=== PATIENT | female | born 1955 | race Caucasian/White ===

== ENCOUNTER 2024-01-27 13:49 | Outpatient (OUT) | payer MEDICARE, MEDICAID, SELFPAY ==
--- NOTE | 2024-01-27 14:00 | CA_ITS ---
Patient Name: CHLOE BENOIT MR#: [id number] : 1955 Exam Date: 01/27/2024 Ordering Doctor: PARKER Apple CNP ECHOCARDIOGRAM REPORT PROCEDURE: CA ECHO DOPPLER COMPLETE INDICATIONS: Uncontrolled hypertension, dyspnea COMPARISON: None. DESCRIPTION: COMPLETE ECHOCARDIOGRAM Real-time transthoracic echocardiography with 2D, M-mode, spectral and color flow Doppler performed. QUALITY: Technical quality was adequate. 65 , 264#, BSA 2.23 m2, BP 166/84 LEFT VENTRICLE: Normal chamber size. Normal left ventricular wall thickness. Normal systolic function. LV EF: Normal left ventricular ejection fraction, (>55%). DIASTOLIC: Normal diastolic function. ATRIAL SEPTUM: Visually appears intact. LEFT ATRIUM: Normal chamber size. RIGHT ATRIUM: Normal chamber size. RIGHT VENTRICLE: Normal chamber size. Normal right ventricular systolic function. TRICUSPID VALVE: Normal mobility and thickness. No stenosis with trivial regurgitation. No evidence of pulmonary hypertension. RVSP 33 mmHg MITRAL VALVE: Normal mobility and thickness. No evidence of mitral valve stenosis. There is no mitral annular calcification. No mitral regurgitation. AORTIC VALVE: Normal trileaflet appearance. No visible sclerosis. Normal leaflet mobility. No evidence of aortic valve stenosis. Multifocal calcifications. No aortic regurgitation. AORTIC ROOT: Normal diameter and appearance. PULMONIC VALVE: Normal thickness and mobility. No stenosis. No regurgitation. PERICARDIUM: No evidence of pericardial effusion. IVC: Collapses with inspirations. PLEURA: CONCLUSION: 1. Normal ventricular size and systolic function. LVEF is estimated at 55 to 60%. 2. Normal diastolic function. 3. No significant valvular dysfunction. 4. Normal right-sided pressures. 5. No pericardial effusion. Adult Echocardiography Procedure Report Left Ventricle LVEDD (3.7 - 5.6 cm): 4.61 cm LVESD (2.2 - 4.0 cm): 3.32 cm LVIVS thickness (0.6 - 1.2 cm): 0.67 cm LVPW thickness (0.5 - 1.0 cm): 0.81 cm e': 0.07 m/s E - e': 11.07 LVOT Max Gradient: 4.03 mm[Hg] LVOT Area (cm2): 1.00 m/s Peak Velocity (LVOT): 1.00 m/s Mean Velocity (LVOT): 0.66 m/s LVOT Diameter 1.99 cm Left Atrium LA Volume Index (2D A2C): 28.59 ml/m2 Left Atrium Systolic Dimension: 4.12 cm Mitral Valve MV E to A Ratio: 0.80 Mitral Valve A-Wave Peak Velocity: 0.93 m/s Mitral Valve E-Wave Peak Velocity: 0.74 m/s Right Ventricle Aorta AO Root Diam: 2.90 cm Aortic Valve AoV Area (Peak Joe): 1.91 cm2, 1.91 cm2 AoV Area (VTI): 2.57 cm2, 2.57 cm2 Peak Velocity(Antegrade Flow): 1.63 m/s Peak Gradient(Antegrade Flow): 10.64 mm[Hg] Mean Velocity(Antegrade Flow): 1.19 m/s Mean Gradient(Antegrade Flow): 6.11 mm[Hg] Velocity Time Integral: 30.24 cm Tricuspid Valve Peak Velocity (Regurgitant Flow): 2.74 m/s, 2.67 m/s Pulmonic Valve Peak Gradient: 3.49 mm[Hg], 3.39 mm[Hg] Right Atrium Right Atrium Systolic Pressure: 47.54 ml, 47.54 ml Dictated by: Giles Bonilla M.D. on 01/27/2024 at 18:03 Approved by: Giles Bonilla M.D. on 01/27/2024 at 18:06
--- NOTE | 2024-01-27 14:45 | XR_ITS ---
The [address] [address] Patient Name: CHLOE BENOIT MRN: [id number] date: 1955 Sex: F Assigned Patient Location: CARD Current Patient Location: CARD Accession/Order Number: [id number] Exam Date: 01/27/2024 14:48 Report Date: 01/27/2024 15:59 At the request of: ROMAAN COVINGTON Procedure: XR chest 2V EXAM: XR chest 2V HISTORY: Dyspnea on exertion R06.09 COMPARISON: 10/22/2019 TECHNIQUE: Upright PA and lateral chest x-ray FINDINGS: The heart is near the upper limits of normal in size without cardiac decompensation. No acute infiltrate, effusion or pneumothorax is identified. The previously noted right PICC line has been removed. The osseous structures are grossly intact. XR/XR chest 2V IMPRESSION: No acute infiltrate or evidence of cardiac decompensation. Except for interval clearing of the right lung base and removal of the right PICC line, the overall appearance of the chest has not changed significantly. Electronically authenticated by: ALEX CLEANING Date: 01/27/2024 15:59
--- NOTE | 2024-01-27 14:46 | XR_ITS ---
The [address] [address] Patient Name: CHLOE BENOIT MRN: [id number] date: 1955 Sex: F Assigned Patient Location: CARD Current Patient Location: Accession/Order Number: [id number] Exam Date: 01/27/2024 15:05 Report Date: 01/28/2024 07:21 At the request of: ROMANA COVINGTON Procedure: XR DEXA axial skeleton EXAMINATION: XR DEXA axial skeleton, 01/27/2024 3:05 PM EDT HISTORY: Z78.0 asymptomatic menopausal state COMPARISON: 2015 TECHNIQUE: Dual-energy X-ray absorptiometry (DEXA) bone density study performed for the axial skeleton. HISTORY: Z78.0 asymptomatic menopausal state FINDINGS: Bone mineral density AP spine L1-L4 measures 1.200 g/sq cm. T score 0.2. Dense opacification: Normal. Lowest bone mineral densities the left femoral neck measuring 0.806 g/sq cm for T score of -1.7. WHO classification: Osteopenia XR/XR DEXA axial skeleton IMPRESSION: Osteopenia. Moderate fracture risk Electronically authenticated by: JONELLE EPSTEIN Date: 01/28/2024 07:21
--- NOTE | 2024-01-27 14:46 | MM_ITS ---
Patient Name: CHLOE BENOIT MR#: [id number] : 1955 Exam Date: 01/27/2024 Ordering Doctor: PARKER Apple CNP RADIOLOGY REPORT PROCEDURE: MM TOMOSYNTHESIS SCREENING BI COMPARISON: MG MAMM SCREEN 3D MADAN CAD, 12/27/2021. MG MAMM RT DIAG FU, 01/02/2022. INDICATIONS: screening Calculator Name NCI Breast Cancer Risk Assessment Tool 5 Year Breast Cancer Risk 4.10% Lifetime Breast Cancer Risk 13.50% Personal Breast Cancer No Personal Ovarian Cancer No Treatments None Family Cancers Mother with breast cancer at age ~60; Father with colon, liver cancer at age 70. LOCATION: [facility] BREAST COMPOSITION: Scattered areas fibroglandular density. FINDINGS: DIAGNOSTIC CATEGORY 2--BENIGN FINDING. NO CHANGE FROM COMPARISON. Scattered benign-appearing nodules are present. Scattered benign-appearing calcifications are present. Scattered benign-appearing lymph nodes are present. RIGHT BREAST: No significant suspicious finding. LEFT BREAST: No significant suspicious finding. RECOMMENDATIONS: ROUTINE MAMMOGRAM AND CLINICAL EVALUATION IN 12 MONTHS. PLEASE NOTE: A NORMAL MAMMOGRAM DOES NOT EXCLUDE THE POSSIBILITY OF BREAST CANCER. A CLINICALLY SUSPICIOUS PALPABLE LUMP SHOULD BE BIOPSIED. Dictated by: Arnie Schwartz MD on 01/27/2024 at 16:01 Approved by: Arnie Schwartz MD on 01/27/2024 at 16:05
== END 2024-01-27 13:50 | disposition home or self-care (01) ==
LOC: CARD 13:51
PROVIDERS: PCP Nurse Practitioner; Visit Provider Nurse Practitioner
DX: Z12.31 Encounter for screening mammogram for malignant neoplasm of breast (principal); Z78.0 Asymptomatic menopausal state; I10 Essential (primary) hypertension; R06.09 Other forms of dyspnea; Z80.3 Family history of malignant neoplasm of breast; Z80.0 Family history of malignant neoplasm of digestive organs; Z80.8 Family history of malignant neoplasm of other organs or systems; M85.80 Other specified disorders of bone density and structure, unspecified site
CPT/HCPCS: 71046; 77063; 77067; 77080; 93306

== ENCOUNTER 2024-05-19 10:16 | Outpatient (OUT) | payer MEDICARE, SELFPAY ==
[2024-05-19 11:02] LABS: Creatinine Urine Random 136.31 mg/dL (20.00-300.00); Microalbum Creatinine Ratio Ur 9.5 mg/g (0.0-29.9); Microalbumin Urine Random <1.3 mg/dL (<=30.0)
[2024-05-19 11:04] LABS: Estimated Average Glucose 117 mg/dL; Glycohemoglobin A1C 5.7 % (4.5-6.2)
[2024-05-19 11:18] LABS: Chol HDL Ratio 2.7; Cholesterol 137 mg/dL (<=200); HDL Cholesterol 50 mg/dL (40-60); LDL Cholesterol Calculated 74.8 mg/dL; Thyroid Stimulating Hormone 1.819 uIU/mL (0.358-3.740); Triglycerides 61 mg/dL (<=150); VLDL CHOLESTEROL 12.2 mg/dL
[2024-05-19 11:36] LABS: Free T4 0.99 ng/dL (0.76-1.46)
== END 2024-05-19 10:17 | disposition home or self-care (01) ==
LOC: LAB 10:18
PROVIDERS: PCP Nurse Practitioner; Visit Provider Nurse Practitioner
DX: K21.9 Gastro-esophageal reflux disease without esophagitis (principal); I10 Essential (primary) hypertension; R73.03 Prediabetes; F41.9 Anxiety disorder, unspecified; F32.A Depression, unspecified
CPT/HCPCS: 36415; 80061; 82043; 82306; 82570; 82607; 83036; 84439; 84443

== ENCOUNTER 2024-05-19 10:20 | Outpatient (OUT) | payer MEDICARE, SELFPAY ==
[2024-05-19 10:51] LABS: Basophils Absolute Auto 0.2 10^3/uL (0.0-0.1); Basophils Percent Auto 1.8 % (0.2-2.0); Eosinophils Absolute Auto 0.2 10^3/uL (0.0-0.7); Eosinophils Percent Auto 2.2 % (0.9-7.0); Hematocrit 39.6 % (36.0-48.0); Hemoglobin 13.3 g/dL (12.0-16.0); Immature Granulocytes Abs Auto 0.06 10^3/uL (0.00-0.03); Immature Granulocytes Pct Auto 0.7 % (0.0-0.5); Lymphocytes Absolute Auto 2.1 10^3/uL (1.2-3.8); Lymphocytes Percent Auto 25.9 % (20.5-60.0); Mean Corpuscular HGB Conc 33.6 g/dL (29.9-35.2); Mean Corpuscular Hemoglobin 32.7 pg (26.7-34.0); Mean Corpuscular Volume 97.3 fL (81.0-99.0); Mean Platelet Volume 13.1 fL (9.5-13.5); Monocytes Absolute Auto 0.5 10^3/uL (0.3-0.8); Monocytes Percent Auto 5.4 % (1.7-12.0); Neutrophils Absolute Auto 5.3 10^3/uL (1.4-6.5); Platelet Count 196 10^3/uL (150-450); Red Blood Count 4.07 10^6/uL (4.20-5.40); Red Cell Distribution Width 14.9 % (11.0-15.0); White Blood Count 8.3 10^3/uL (4.0-11.0)
[2024-05-19 11:05] LABS: Bilirubin Urine NEGATIVE (NEGATIVE); Blood Urine NEGATIVE (NEGATIVE); Clarity Urine CLEAR (CLEAR); Color Urine YELLOW (YELLOW); Glucose Urine UA NEGATIVE (NEGATIVE); Ketones Urine NEGATIVE (NEGATIVE); Leukocyte Esterase Urine NEGATIVE (NEGATIVE); Nitrite Urine NEGATIVE (NEGATIVE); Protein Urine NEGATIVE (NEG/TRACE); Urine Microscopic Indicated NO; Urobilinogen Urine 0.2 EU/dL (0.2-1.0); pH Urine 7.5 (5.0-9.0)
[2024-05-19 11:07] LABS: Partial Thromboplastin Time 30.5 sec (22.3-36.2); Prothrombin Time 10.6 sec (9.0-11.6)
[2024-05-19 11:09] LABS: Alanine Aminotransferase 33 U/L (14-59); Albumin Globulin Ratio 0.9; Albumin Level 3.2 g/dL (3.4-5.0); Alkaline Phosphatase 90 U/L (46-116); Anion Gap 12.1; Aspartate Amino Transferase 15 U/L (15-37); BUN Creatinine Ratio 14.3; Bilirubin Total 0.5 mg/dL (0.2-1.0); Chloride 105 mmol/L (98-107); Estimated GFR (African America >60 (>=60); Estimated GFR (Non-African Ame >60 (>=60); Globulin 3.4 g/dL; Glucose 117 mg/dL (74-106); Potassium 4.1 mmol/L (3.5-5.1); Sodium 141 mmol/L (136-145); Total Protein 6.6 g/dL (6.4-8.2)
== END 2024-05-19 10:21 | disposition home or self-care (01) ==
LOC: LAB 10:23
PROVIDERS: PCP Nurse Practitioner; Visit Provider Personal Emergency Response Attendant
DX: Z01.812 Encounter for preprocedural laboratory examination (principal); K21.9 Gastro-esophageal reflux disease without esophagitis; I10 Essential (primary) hypertension; R73.03 Prediabetes; F41.9 Anxiety disorder, unspecified; F32.A Depression, unspecified
CPT/HCPCS: 36415; 80053; 80061; 81003; 82043; 82306; 82570; 82607; 83036; 84439; 84443; 85025; 85610; 85730; 87086; 87150; 87186

== ENCOUNTER 2025-05-18 10:00 | Outpatient (OUT) | payer MEDICARE, SELFPAY ==
--- OUTSIDE RECORDS SUMMARY | 2023-12-11 11:00 | XMS_ITS ---
Author Organization [facility] Servic es Address [address] [place] [address] Care Team Providers Care Byproducts Maker Name Role Phone Alanna Cuenca Primary Care Provider REASON FOR VISIT ALVEOPLASTY Encounters Encounter Location Date Provider Diagnosis [place] [address] [place] [address] 12/11/2023 Alanna Martinez Plan Of Treatment No Information Progress Notes * CHLOE BENOIT ADOB:[birth year] (70 yo F)Acc No.[id number]:12/11/2023 Patient: Willard GOMEZCHLOE Provider: Jayshree MARTINEZ DDS :1955 A ge:68 Y S ex:Female Date:12/11/2023 Address:[address] [place], [place] [id number] Subjective: * Chief Complaints: * 1 . ALVEOPLASTY. * Medical History: Objective: * Vitals: Assessment: Plan: * Treatment: * Images: * Electronic signature of Johana Martinez DDS on 05/18/2025 at 06:28 AM EDT Sign off status: Pending * Provider: Jayshree MARTINEZ DDS Date: 12/11/2023 Generated for Neena mckenzie/Leeann/eTransmitting on: 0 05/18/2025 06:28 AM EDT
--- OUTSIDE RECORDS SUMMARY | 2024-01-15 09:30 | XMS_ITS ---
Author Organization [facility] Servic es Address [address] [place] [address] Care Team Providers Care Employment Counselor Name Role Phone Alanna Cuenca Primary Care Provider REASON FOR VISIT FILLING Encounters Encounter Location Date Provider Diagnosis [place] [address] [place] [address] 01/15/2024 Alanna Martinez Plan Of Treatment No Information Progress Notes * CHLOE BENOIT ADOB:[birth year] (70 yo F)Acc No.[id number]:01/15/2024 Patient: Willard GOMEZ CHLOE Garcia Provider: Jayshree MARTINEZ DDS :1955 A ge:68 Y S ex:Female Date:01/15/2024 Address:[address] [place], [place] [id number] Subjective: * Chief Complaints: * 1 . FILLING. * Medical History: Objective: * Vitals: Assessment: Plan: * Treatment: * Images: * Electronic signature of Johana Martinez DDS on 05/18/2025 at 06:28 AM EDT Sign off status: Pending * Provider: Jayshree MARTINEZ DDS Date: 01/15/2024 Generated for Neena mckenzie/Leeann/eTransmitting on: 05/18/2025 06:28 AM EDT
--- OUTSIDE RECORDS SUMMARY | 2025-05-18 10:09 | XMS_ITS | Encounter Summary ---
Author Organization [facility] Address [address] [facility] [place] [address] Care Team Providers Care Government Affairs Researcher Name Role Phone Tootie Apple NP Unavailable [phone] Bowen Coawn MD Primary Care Provider [phone] Tootie Apple MUSIC LIBRARY ASSISTANT Unavailable [phone] Encounter Details Date Type Department Care Team (Late st Contact Info) Description 06/03/2024 External Result Encounter [facility] [address] [place] [address] Iggy Wilson, MANAN [address] [place] [address] Social History Tobacco Use Types Packs/Day Years Used Date Smoking Tobacco: Former Cigarettes Q uit: 2020 Passive Smoke Exposure: Past Smokeless Tobacco: Never Alcohol Use Standard Drinks/Week Comments Never 0 (1 standard drink = 0.6 oz pur e alcohol) Humiliation, Afraid, Rape, and Kick questionnair e Answer Date Recorded Within the last year, have y ou been afraid of your partner or ex-partner? No 01/14/2024 Within the last year, have y ou been humiliated or emotionally abused in other ways by your partner or ex-partner? No Within the last year, have y ou been kicked, hit, slapped, or otherwise physically hurt by your partner or ex-partner? No 01/14/2024 Within the last year, have y ou been raped or forced to have any kind of sexual activity by your partner or ex-partner? No 01/14/2024 Social Connection and Isolat ion Panel [NHANES] Answer Date Recorded In a typical week, how many times do you talk on the phone with family, friends, or neighbors? More than three times a week 01/14/2024 How often do you get togethe r with friends or relatives? More than three times a week 01/14/2024 How often do you attend chur ch or spiritism services? More than 4 times per year 01/14/2024 Do you belong to any clubs o r organizations such as christianity groups, unions, fraternal or athletic groups, or school groups? No 01/14/2024 How often do you attend meet ings of the clubs or organizations you belong to? Never 01/14/2024 Are you , , di vorced, , never , or living with a partner? 01/14/2024 AUDIT-C Answer Date Recorded Q1: How often do you have a drink containing alcohol? Never 01/14/2024 Q2: How many drinks containi ng alcohol do you have on a typical day when you are drinking? Patient does not drink Q3: How often do you have si x or more drinks on one occasion? Never 01/14/2024 Overall Financial Resource Strain (CARDIA) Answe r Date Recorded How hard is it for you to pa y for the very basics like food, housing, medical care, and heating? Somewhat hard 01/14/2024 PHQ-2 Answer Date Recorded Patient Health Questionnaire-2 Score 1 01/14/2024 [facility] - Occupational Stress Questionnaire Answer Date Recorded Do you feel stress - tense, restless, nervous, or anxious, or unable to sleep at night because your mind is troubled all the time - these days? Only a little 01/14/2024 Exercise Vital Sign Answer Date Recorde d On average, how many days pe r week do you engage in moderate to strenuous exercise (like a brisk walk)? 0 days 01/14/2024 On average, how many minutes do you engage in exercise at this level? 0 min 01/14/2024 Hunger Vital Sign Answer Date Recorded Within the past 12 months, y ou worried that your food would run out before you got the money to buy more. Never true 01/14/20 24 Within the past 12 months, t he food you bought just didn't last and you didn't have money to get more. Never true 01/14/2024 PRAPARE - Transportation Answer Date Re corded In the past 12 months, has l ack of transportation kept you from medical appointments or from getting medications? No 12/2023 In the past 12 months, has l ack of transportation kept you from meetings, work, or from getting things needed for daily living? No 01/14/2024 Housing Stability Vital Sign Answer [place] e Recorded In the last 12 months, was t here a time when you were not able to pay the mortgage or rent on time? No 01/14/2024 In the last 12 months, how many places have you lived? 1 01/14/2024 In the last 12 months, was t here a time when you did not have a steady place to sleep or slept in a prison (including now)? No 01/14/2024 Comments Unknown Sex and Gender Information Value Date Recorded Sex Assigned at Not on file Legal Sex Female 6:41 PM EDT Gender Identity Female 04/06/2023 7:49 PM EDT Sexual Orientation Not on file documented as of this encounter Plan of Treatment Upcoming Encounters Date Type Department Care Team (Late st Contact Info) Description 05/18/2025 10:30 AM EDT Office Visit [facility] [address] [place] [address] Tootie Apple NP [address] [place] [address] documented as of this encounter Procedures Procedure Name Priority Date/Time Associated Diagnosis Comments XR LOWER EXTREMITY LEG LENGTH EVALUATION 06/03/2024 2:40 PM EDT XR CHEST 2 VIEWS 06/03/2024 2:34 PM EDT documented in this encounter Results * XR lower extremity leg length evaluation (06/03/2024 2:40 PM EDT) Anatomical Region Laterality Modality Lower Extremities Radiographic I maging 06/03/2024 2:40 PM EDT Narrative 06/03/2024 2:39 PM EDT THIS EXAM WAS PERFORMED AT [facility] History: Joint pain. Templating for leg alignment purposes Study: A frontal view of the lower extremities One view study. Comparison: None Findings: Of the right knee medial compartment is appreciated. Sclerosis along the tibial plateau is noted. Impression: Right lower extremity measures 84.8 cm. Finalized by Krissy Suarez MD on 06/03/2024 2:39 PM Procedure Note Radiology, RadiologistMD - 06/03/2024 THIS EXAM WAS PERFORMED AT [facility] History: Joint pain. Templating for leg alignment purposes Study: A frontal view of the lower extremities One view study. Comparison: None Findings: Of the right knee medial compartment is appreciated. Sclerosis along thetibial plateau is noted. Impression: Right lower extremity measures 84.8 cm. Finalized by Krissy Suarez MD on 06/03/2024 2:39 PM us Iggy HINKLE IMG XR PROCEDURES Final Resul t * XR chest 2 views (06/03/2024 2:34 PM EDT) Anatomical Region Laterality Modality Chest Radiographic Kerry ging 06/03/2024 2:34 PM EDT Narrative 06/03/2024 2:33 PM EDT THIS EXAM WAS PERFORMED AT [facility] History: Preoperative examination Procedure: 2 view PA and Lateral chest radiograph. Comparison: none Findings: Minimal bandlike atelectasis at the left lung base. Cardiac silhouette and pulmonary vessels within normal limits. No pneumothorax. No pleural effusions. Impression: Minimal left base atelectasis. Finalized by Rajan Marie MD on 06/03/2024 2:33 PM Procedure Note Radiology, RadiologistMD - 06/03/2024 THIS EXAM WAS PERFORMED AT [facility] History: Preoperative examination Procedure: 2 view PA and Lateral chest radiograph. Comparison: none Findings: Minimal bandlike atelectasis at the left lung base. Cardiacsilhouette and pulmonary vessels within normal limits. No pneumothorax.No pleural effusions. Impression: Minimal left base atelectasis. Finalized by Rajan Marie MD on 06/03/2024 2:33 PM us Iggy HINKLE IMG XR PROCEDURES Final Resul t documented in this encounter Visit Diagnoses Not on filedocumented in this encounter Additional Health Concerns Assessment Noted Time PHQ-9 Depression Total Score: 2 01/14/20 24 10:40 AM EDT documented as of this encounter Care Teams Government Affairs Researcher Relationship Specialty Start Date End Date Bowen Cowan MD [address] [place] [address] PCP - General Family Medicine 12/04/23 Tootie Apple NP [address] [place] [address] PCP - ACO Reach 11/19/24 Tootie Apple NP Referring Physician Nurse Practitioner 04/07/23 documented as of this encounter
--- OUTSIDE RECORDS SUMMARY | 2025-05-18 10:09 | XMS_ITS | Encounter Summary ---
Author Organization [facility] Address [address] [place] [address] Care Team Providers Care Petrologist Name Role Phone Bowen Cowan MD Primary Care Provider [phone] Tootie Apple NP Unavailable [phone] Bowen Cowan MD Primary Care Provider [phone] Tootie Apple NP Unavailable [phone] Encounter Details Date Type Department Care Team (Late st Contact Info) Description 04/04/2023 [facility] [address] [place] [address] Iggy Wilson, PA [address] [facility] [place] [address] Social History Tobacco Use Types Packs/Day Years Used Date Smoking Tobacco: Unknown Tobacco Cessation:Counseling Given: Not Answered Comments Unknown Sex and Gender Information Value Date Recorded Sex Assigned at Not on file Legal Sex Female 6:41 PM EDT Gender Identity Female 04/06/2023 7:49 PM EDT Sexual Orientation Not on file documented as of this encounter Plan of Treatment Upcoming Encounters Date Type Department Care Team (Late st Contact Info) Description 05/18/2025 10:30 AM EDT Office Visit [facility] [address] [place] [phone] Tootie Apple AUTOMOTIVE PARTS PERSON [address] [place] [phone] documented as of this encounter Visit Diagnoses Not on filedocumented in this encounter Care Teams Petrologist Relationship Specialty Start Date End Date Bowen Cowan MD PCP - General Family Medicine 04/07/23 12/03/23 Bowen Cowan MD [address] [place] [address] PCP - General Family Medicine 12/04/23 Tootie Apple NP [address] [place] [address] PCP - ACO Reach 11/19/24 Tootie Apple NP Referring Physician Nurse Practitioner 04/07/23 documented as of this encounter
--- OUTSIDE RECORDS SUMMARY | 2025-05-18 10:09 | XMS_ITS | Encounter Summary ---
Author Organization [facility] Address [address] [place] [address] Care Team Providers Care Pad Assembler Name Role Phone Tootie Apple NP Unavailable [phone] Bowen Cowan MD Primary Care Provider [phone] Tooite Apple NP Unavailable [phone] Encounter Details Date Type Department Care Team (Late st Contact Info) Description 01/27/2024 Clinisync Result Encounter [facility] External Department Unsolicited Tootie Apple NP [address] [place] [address] Social History Tobacco Use Types Packs/Day Years [...] often do you attend chur ch or mandaeism services? More than 4 times per year 01/14/2024 Do you belong to any clubs o r organizations such as druze groups, unions, fraternal or athletic groups, or [...] Recorded Patient Health Questionnaire-2 Score 1 01/14/2024 [facility] - [facility]ational Stress Questionnaire Answer Date Recorded [...] place to sleep or slept in a usp (including now)? No 01/14/2024 Comments Unknown Sex [...] 10:30 AM EDT Office Visit [facility] [address] [place] [address] Tootie Apple NP [address] [place] [address] documented as of this encounter Procedures Procedure Name Priority Date/Time Associated Diagnosis Comments XR CHEST 2V 01/27/2024 3:59 PM EDT documented in this encounter Results * XR CHEST 2V (01/27/2024 3:59 PM EDT) Anatomical Region Laterality Modality Other 01/27/2024 3:59 PM EDT Narrative 01/27/2024 4:02 PM EDT The [address] [address] XRay Report Signed Patient: ARLENE BENOIT#: [id number] : 1955 Acct:[id number] Age/Sex: 68 / F ADM Date: 01/27/24 Loc: CARD Attending Dr: Tootie Apple NP Ordering Physician: Tootie Apple NP Date of Service: 01/27/24 Procedure(s): XR chest 2V Accession Number(s): [id number] cc: Tootie Apple NP The [place] [id number] Patient Name: ARLENE BENOIT MRN: [id number] date: 1955 Sex: F Assigned Patient Location: CARD Current Patient Location: CARD Accession/Order Number: [id number] Exam Date: 01/27/2024 14:48 Report Date: 01/27/2024 15:59 At the request of: TOOTIE APPLE Procedure: XR chest 2V EXAM: XR chest 2V HISTORY: Dyspnea on exertion R06.09 COMPARISON: 10/22/2019 TECHNIQUE: Upright PA and lateral chest x-ray FINDINGS: The heart is near the upper limits of normal in size without cardiac decompensation. No acute infiltrate, effusion or pneumothorax is identified. The previously noted right PICC line has been removed. The osseous structures are grossly intact. XR/XR chest 2V IMPRESSION: No acute infiltrate or evidence of cardiac decompensation. Except for interval clearing of the right lung base and removal of the right PICC line, the overall appearance of the chest has not changed significantly. Electronically authenticated by: ALEX NJ Date: 01/27/2024 15:59 Dictated By: Alex Nj M.D. Signed By: 01/27/24 1602 DD/ 1559 TD/TT: Rehab Aide: Procedure Note Radiology, Radiologist, - 01/27/2024 [place] [address] XRay Report Signed Patient: ARLENE BENOIT AMR#: [id number] : 1955cct:[id number] Age/Sex: 68 / FADM Date: 01/27/24 Loc: CARD Attending Dr: Tootie Apple RETAIL BANKING MANAGER Ordering Physician: Tootie Apple NP Date of Service: 01/27/24 Procedure(s): XR chest 2V Accession Number(s): [id number] cc: Tootie Apple NP [address] [address] Patient Name: ARLENE BENOIT MRN: [id number] date: 1955 Sex: F Assigned Patient Location: CARD Current Patient Location: CARD Accession/Order Number: [id number] Exam Date: 01/27/2024 14:48 Report Date: 01/27/2024 15:59 At the request of: TOOTIE APPLE Procedure: XR chest 2V EXAM: XR chest 2V HISTORY: Dyspnea on exertion R06.09 COMPARISON: 10/22/2019 TECHNIQUE: Upright PA and lateral chest x-ray FINDINGS: The heart is near the upper limits of normal in size withoutcardiac decompensation. No acute infiltrate, effusion or pneumothorax isidentified. The previously noted right PICC line has been removed. The osseousstructures are grossly intact. XR/XR chest 2V IMPRESSION: No acute infiltrate or evidence of cardiac decompensation. Except forinterval clearing of the right lung base and removal of the right PICC line, the overall appearance of the chest has not changed significantly. Electronically authenticated by: ALEX NJ Date: 01/27/2024 15:59 Dictated By: Alex Nj M.D. Signed By:01/27/24 1602 DD/ 1559 TD/TT: Rehab Aide: us Tootie Apple RETAIL BANKING MANAGER [facility] Final Result documented in this encounter Visit Diagnoses Not on filedocumented in this encounter Additional Health Concerns Assessment Noted Time PHQ-9 Depression Total Score: 2 01/14/20 24 10:40 AM EDT documented as of this encounter Care Teams Pad Assembler Relationship Specialty Start Date End Date Bowen Cowan MD [address] [place] [address] PCP - General Family Medicine 12/04/23 Tootie Apple NP [address] [place] [address] PCP - ACO Reach 11/19/24 Tootie Apple NP Referring Physician Nurse Practitioner 04/07/23 documented as of this encounter
--- OUTSIDE RECORDS SUMMARY | 2025-05-18 10:09 | XMS_ITS | Clinical Summary ---
Author Organization [employer] Address [id number] [address] [place] [address] Care Team Providers Care Rim Fire Priming Operator Name Role Phone ErmaaartiTootie mobley SERVICE UNIT OPERATOR OIL WELL-STOCK CLERK Primary Care Provider Allergies Active Allergy Reactions Criticality Noted Date Comments Doxycycline Hives,Swelling 11/03/2019 Medications escitalopram (LEXAPRO) 10 mg tablet Take 1 tablet (10 mg total) by mouth in the morning. 0 Active metoprolol tartrate (LOPRESSOR) 25 mg tablet Take 1 tablet (25 mg total) by mouth in the morning and 1 tablet (25 mg total) before bedtime. 0 Active pantoprazole (PROTONIX) 40 mg EC tablet Take 1 tablet (40 mg total) by mouth in the morning. 0 Active ibuprofen (ADVIL,MOTRIN) 200 mg tablet Take 1 tablet (200 mg total) by mouth. Active docusate sodium (COLACE) 100 mg capsule Take 1 capsule (100 mg total) by mouth every other day. Active sodium chloride syringe, with swab cap Irrigate with 10 mL as directed every 12 (twelve) hours. 140 mL 2 0 Active Additional Information Patient not taking.Reported on 01/13/2020 sulfamethoxazol e-trimethoprim (BACTRIM DS) 800-160 mg per tablet Take 1 tablet by mouth 2 (two) times a day. 20 tablet 0 Active fexofenadine-ps eudoephedrine (FABY-D 24) 180-240 mg per 24 hr tablet Take 1 tablet by mouth daily. Active methylPREDNISol one (MEDROL, VIRGILIO,) 4 mg tablet TAKE 6 TABLETS ON DAY 1 DIRECTED ON PACKAGE AND DECREASE BY 1 TABLET EACH DAY FOR A TOTAL OF 6 DAYS 2 Active SUTAB 1.479-0.188- 0.225 gram tabletIndicatio ns:Encounter for screening colonoscopy Please see instructional sheet given to patient from doctors office. 24 tablet 3 Active Active Problems Problem Noted Date Diagnosed Date Intra-abdominal abscess 11/11/2019 Immunizations No known immunizations Family History Medical History Relation Name Comments Colon cancer Father angel Diabetes Father angel Heart disease Father angel Breast cancer Mother rell Hypertension Mother rell Leukemia Mother rell Uterine cancer Sister Relation Name Status Comments Father angel Mother rell Sister Alive Social History Tobacco Use Types Packs/Day Years Used Date Smoking Tobacco: Never Smokeless Tobacco: Never Tobacco Cessation:Counseling Given: Not Answered Alcohol Use Standard Drinks/Week Comments Not Currently 0 (1 standard drink = 0.6 oz pur e alcohol) AUDIT-C Answer Date Recorded Frequency of Alcohol Consumption Never 11/03/2019 Average Number of Drinks Not on file 020 Frequency of Binge Drinking Not on file 10/14 Childcare Answer Date Recorded Childcare Unknown 03/24/2019 Employment Answer Date Recorded Employment Unknown 03/24/2019 Hunger Screening Answer Date Recorded Within the past 12 months we worried whether our food would run out before we got money to buy more. Never True 10/17/2022 Within the past 12 months th e food we bought just didn't last and we didn't have money to get more. Never True 10/17/2022 Purpose - Life Answer Date Recorded Purpose and direction in life Unknown Comments No Sex and Gender Information Value Date Recorded Sex Assigned at Not on file Legal Sex Female 11:42 AM EDT Gender Identity Not on file Sexual Orientation Not on file Last Filed Vital Signs Vital Sign Reading Time Taken Comments Blood Pressure 117/78 01/13/2020 10:08 AM EDT Pulse 100 01/13/2020 10:08 AM EDT Temperature 36.8 C (98.2 F) 11/14/2019 7:59 AM EST Respiratory Rate 17 12/27/2019 2:05 PM EDT Oxygen Saturation 100% 11/14/2019 7:59 AM EST Inhaled Oxygen Concentration - - Weight 105.7 kg (233 lb) 01/13/2020 10:08 AM EDT Height 165.1 cm (5' 5 ) 01/13/2020 10:08 AM EDT Body Mass Index 38.77 01/13/2020 10:08 AM EDT Plan of Treatment Health Maintenance Due Date Last Done Comments Depression Screening 1968 Tobacco Screening 1968 Adult BMI Screening 02/11/1974 Zoster (Shingles) Vaccine (2 of 3) 08/08/20172016 Fall Risk Screening 02/11/2021 COVID-19 Vaccine (2023-2 5 season) 2024 09/14/2021, 01/19/2021, 12/19/2020 DTaP,Tdap and Td Vaccines (2 - Td or Tdap) 06/11/2025 06/11/2015 Influenza Vaccine 06/13/2025 06/13/2017 Medical Devices Not on file Insurance MEDICARE Advance Directives * Full Code (Latest Code Status on File) Date Activated Date Inactivated Comments 11/11/2019 9:08 PM 11/14/2019 3:01 PM Care Teams Rim Fire Priming Operator Relationship Specialty Start Date End Date Tootie Apple, SERVICE UNIT OPERATOR OIL WELL-STOCK CLERK PCP - General Nurse Practitioner 10/25/19
--- OUTSIDE RECORDS SUMMARY | 2025-05-18 10:09 | XMS_ITS | Encounter Summary ---
Author Organization [facility] [employer] Address [id number] [address] [place] [address] Care Team Providers Care Centrifugal Spinner Name Role Phone ErmaaartiTootie mobley WAREHOUSE REPRESENTATIVE-SCIENCE SPECIALIST Primary Care Provider Encounter Details Date Type Department Care Team (Late st Contact Info) Description 11/18/2022 Telephone [facility] [address] [place] [address] Nickie Mattson RMA Social History Tobacco Use Types Packs/Day Years Used Date Smoking Tobacco: Never Smokeless Tobacco: Never Alcohol Use Standard Drinks/Week Comments Not Currently [...] on file Sexual Orientation Not on file documented as of this encounter Miscellaneous Notes * Telephone Encounter - STEPHANIE Castro - 11/18/2022 11:06 AM EST I called Arlene and left a message to call the office to reschedule her colonoscopy - originally scheduled for 11/21/22. She would like it now at the [facility] so she will need an office appt. with Dr. Pederson then I will schedule her surgery and have her sign all paperwork. documented in this encounter Plan of Treatment Not on file documented as of this encounter Visit Diagnoses Not on filedocumented in this encounter Care Teams Centrifugal Spinner Relationship Specialty Start Date End Date Tootie Apple APRN-SCIENCE SPECIALIST PCP - General Nurse Practitioner 10/25/19 documented as of this encounter
--- OUTSIDE RECORDS SUMMARY | 2025-05-18 10:09 | XMS_ITS | Encounter Summary ---
Author Organization [facility] Address [address] [place] [address] Care Team Providers Care Cooperer Name Role Phone Tootie Apple NP Unavailable [phone] Bowen Cowan MD Primary Care Provider [phone] Tootie Apple NP Unavailable [phone] Encounter Details Date Type Department Care Team (Late st Contact Info) Description 01/27/2024 Clinisync Result Encounter [facility] External Department Unsolicited Tootie Apple NP [address] [place] [address] Social History Tobacco Use Types Packs/Day Years [...] often do you attend chur ch or yazidi services? More than 4 times per year 01/14/2024 Do you belong to any clubs o r organizations such as yazidi groups, unions, fraternal or athletic groups, or [...] Recorded Patient Health Questionnaire-2 Score 1 01/14/2024 [facility] - [facility] Stress [...] place to sleep or slept in a penitentiary (including now)? No 01/14/2024 Comments Unknown Sex [...] Office Visit [facility] [address] [place] [address] Tootie Apple NP [address] [place] [address] documented as of this encounter Procedures Procedure Name Priority Date/Time Associated Diagnosis Comments MM TOMOSYNTHESIS SCREENING BI 01/27/2024 4:06 PM EDT documented in this encounter Results * MM TOMOSYNTHESIS SCREENING BI (01/27/2024 4:06 PM EDT) Anatomical Region Laterality Modality Other 01/27/2024 4:06 PM EDT Narrative 01/27/2024 4:07 PM EDT The [address] [address] Mammography Report Signed Patient: ARLENE BENOIT MR#: [id number] : 1955 Acct:[id number] Age/Sex: 68 / F ADM Date: 01/27/24 Loc: CARD Attending Dr: Tootie Apple NP Ordering Physician: Tootie Apple NP Results: Date of Service: 01/27/24 Follow Up: Procedure(s): MM tomosynthesis screening BI Accession Number(s): [id number] cc: Tootie Apple NP Patient Name: ARLENE BENOIT MR#: [id number] : 1955 Exam Date: 01/27/2024 Ordering Doctor: PARKER Apple CNP RADIOLOGY REPORT PROCEDURE: MM TOMOSYNTHESIS SCREENING BI COMPARISON: MG MAMM SCREEN 3D MADAN CAD, 12/27/2021. MG MAMM RT DIAG FU, 01/02/2022. INDICATIONS: screening Calculator Name NCI Breast Cancer Risk Assessment Tool 5 Year Breast Cancer Risk 4.10% Lifetime Breast Cancer Risk 13.50% Personal Breast Cancer No Personal Ovarian Cancer No Treatments None Family Cancers Mother with breast cancer at age 60; Father with colon, liver cancer at age 70. LOCATION: The [facility] BREAST COMPOSITION: Scattered areas fibroglandular density. FINDINGS: DIAGNOSTIC CATEGORY 2--BENIGN FINDING. NO CHANGE FROM COMPARISON. Scattered benign-appearing nodules are present. Scattered benign-appearing calcifications are present. Scattered benign-appearing lymph nodes are present. RIGHT BREAST: No significant suspicious finding. LEFT BREAST: No significant suspicious finding. RECOMMENDATIONS: ROUTINE MAMMOGRAM AND CLINICAL EVALUATION IN 12 MONTHS. PLEASE NOTE: A NORMAL MAMMOGRAM DOES NOT EXCLUDE THE POSSIBILITY OF BREAST CANCER. A CLINICALLY SUSPICIOUS PALPABLE LUMP SHOULD BE BIOPSIED. Dictated by: Arnie Schwartz MD on 01/27/2024 at 16:01 Approved by: Arnie Schwartz MD on 01/27/2024 at 16:05 Dictated By: Arnie Schwartz M.D. Signed By: 01/27/24 1607 DD/ 1606 TD/TT: Christian Education Director: Procedure Note Radiology, Radiologist, - 01/27/[address] [address] Mammography Report Signed Patient: ARLENE BENOIT AMR#: [id number] : 6Acct:[id number] Age/Sex: 68 / FADM Date: 01/27/24 Loc: CARD Attending Dr: Tootie Apple NP Ordering Physician: Tootie Apple NPResults: Date of Service: 01/27/24Follow Up: Procedure(s): MM tomosynthesis screening BI Accession Number(s): [id number] cc: Tootie Apple NP Patient Name: ARLENE BENOIT MR#: [id number] : 1955 Exam Date: 01/27/2024 Ordering Doctor: PARKER Apple CNP RADIOLOGY REPORT PROCEDURE: MM TOMOSYNTHESIS SCREENING BI COMPARISON: MG MAMM SCREEN 3D MADAN CAD, 12/27/2021. MG MAMM RT DIAG FU, 01/02/2022. INDICATIONS: screening Calculator Name NCI Breast Cancer Risk Assessment Tool 5 Year Breast Cancer Risk 4.10% Lifetime Breast Cancer Risk 13.50% Personal Breast Cancer No Personal Ovarian Cancer No Treatments None Family Cancers Mother with breast cancer at age 60; Father withcolon, liver cancer at age 70. LOCATION: The [facility] BREAST COMPOSITION: Scattered areas fibroglandular density. FINDINGS: DIAGNOSTIC CATEGORY 2--BENIGN FINDING. NO CHANGE FROM COMPARISON. Scattered benign-appearing nodules are present. Scatteredbenign-appearing calcifications are present. Scattered benign-appearing lymph nodes are present. RIGHT BREAST: No significant suspicious finding. LEFT BREAST: No significant suspicious finding. RECOMMENDATIONS: ROUTINE MAMMOGRAM AND CLINICAL EVALUATION IN 12 MONTHS. PLEASE NOTE: A NORMAL MAMMOGRAM DOES NOT EXCLUDE THE POSSIBILITY OFBREAST CANCER. A CLINICALLY SUSPICIOUS PALPABLE LUMP SHOULD BE BIOPSIED. Dictated by: Arnie Schwartz MD on 01/27/2024 at 16:01 Approved by: Arnie Schwartz MD on 01/27/2024 at 16:05 Dictated By: Arnie Schwartz M.D. Signed By:01/27/24 1607 DD/ 1606 TD/TT: Christian Education Director: Tootie Apple NP [facility] Final Result documented in this encounter Visit Diagnoses Not on filedocumented in this encounter Additional Health Concerns Assessment Noted Time PHQ-9 Depression Total Score: 2 01/14/20 24 10:40 AM EDT documented as of this encounter Care Teams Cooperer Relationship Specialty Start Date End Date Bowen Cowan MD [address] [place] [address] PCP - General Family Medicine 12/04/23 Tootie Apple NP [address] [place] [address] PCP - ACO Reach 11/19/24 Tootie Apple NP Referring Physician Nurse Practitioner 04/07/23 documented as of this encounter
--- OUTSIDE RECORDS SUMMARY | 2025-05-18 10:09 | XMS_ITS | Patient Health Record ---
Author Organization [employer] Address [address] [place] [address] Care Team Providers Care Dolly Driver Name Role Phone Alanna Cuenca Primary Care Provider Reason For Referral No Information Medications Medication SIG (Take, Route, Frequency, Duration) Notes Start Date End Date Status Acetaminophen Extra Strength 500 MG 1 tablet as needed Orally every 6 hrs 09/17/2023 Active Ibuprofen 800 MG 1 tablet with food o r milk as needed Orally Three times a day 03/29/2022 Unknown Ibuprofen 800 MG 1 tablet with food o r milk as needed Orally Three times a day 03/27/2022 Unknown Plan Of Treatment No Information Insurance Providers Payer Name Payer Address Payer Phone Subscriber Number Group Number Insured Name Patient Relationship to Insured Coverage Start Date Coverage End Date [place] [address] [place] [address] [id number] CHLOE BENOIT Self - patient is the insured 1 DENTAL [place] [address] [place] [address] [phone] [id number] CHLOE BENOIT Self - patient is the insured 2
--- OUTSIDE RECORDS SUMMARY | 2025-05-18 10:09 | XMS_ITS | Encounter Summary ---
Author Organization [facility] Address [address] [place] [address] Care Team Providers Care Meat Blender Name Role Phone Tootie Apple NP Unavailable [phone] Bowen Cowan MD Primary Care Provider [phone] Tootie Apple NP Unavailable [phone] Encounter Details Date Type Department Care Team (Late st Contact Info) Description 01/28/2024 Clinisync Result Encounter [facility] External Department Unsolicited Tootie Apple NP [address] [place] [address] Social History Tobacco Use Types Packs/Day Years [...] often do you attend chur ch or baptism services? More than 4 times per year 01/14/2024 Do you belong to any clubs o r organizations such as adventist groups, unions, fraternal or athletic groups, or [...] Recorded Patient Health Questionnaire-2 Score 1 01/[facility]2024 [facility] Questionnaire Answer Date Recorded [...] place to sleep or slept in a correction (including now)? No 01/14/2024 Comments Unknown Sex [...] Office Visit [facility] [address] [place] [address] Tootie Apple NP [address] [place] [address] documented as of this encounter Procedures Procedure Name Priority Date/Time Associated Diagnosis Comments XR DEXA AXIAL SKELETON 01/28/2024 7:21 AM EDT documented in this encounter Results * XR DEXA AXIAL SKELETON (01/28/2024 7:21 AM EDT) Anatomical Region Laterality Modality Other 01/28/2024 7:21 AM EDT Narrative 01/28/2024 7:24 AM EDT The [address] [address] XRay Report Signed Patient: ARLENE BENOIT MR#: [id number] : 1955 Acct:[id number] Age/Sex: 68 / F ADM Date: 01/27/24 Loc: CARD Attending Dr: Tootie Apple NP Ordering Physician: Tootie Apple NP Date of Service: 01/27/24 Procedure(s): XR DEXA axial skeleton Accession Number(s): [id number] cc: Tootie Apple NP The [place] [address] Patient Name: ARLENE BENOIT MRN: [id number] date: 1955 Sex: F Assigned Patient Location: CARD Current Patient Location: Accession/Order Number: [id number] Exam Date: 01/27/2024 15:05 Report Date: 01/28/2024 07:21 At the request of: TOOTIE APPLE Procedure: XR DEXA axial skeleton EXAMINATION: XR DEXA axial skeleton, 01/27/2024 3:05 PM EDT HISTORY: Z78.0 asymptomatic menopausal state COMPARISON: 2015 TECHNIQUE: Dual-energy X-ray absorptiometry (DEXA) bone density study performed for the axial skeleton. HISTORY: Z78.0 asymptomatic menopausal state FINDINGS: Bone mineral density AP spine L1-L4 measures 1.200 g/sq cm. T score 0.2. Dense opacification: Normal. Lowest bone mineral densities the left femoral neck measuring 0.806 g/sq cm for T score of -1.7. WHO classification: Osteopenia XR/XR DEXA axial skeleton IMPRESSION: Osteopenia. Moderate fracture risk Electronically authenticated by: JONELLE EPSTEIN Date: 01/28/2024 07:21 Dictated By: Jonelle Epstein M.D. Signed By: 01/28/24723 DD/ 0 TD/TT: Director [employer]: Procedure Note Radiology, Radiologist, - 01/28/2024 The [place] [id number] XRay Report Signed Patient: ARLENE BENOIT AMR#: [id number] : 1955cct:[id number] Age/Sex: 68 / FADM Date: 01/27/24 Loc: CARD Attending Dr: Tootie Apple NP Ordering Physician: Tootie Apple NP Date of Service: 01/27/24 Procedure(s): XR DEXA axial skeleton Accession Number(s): [id number] cc: Tootie Apple NP [place] [address] Patient Name: ARLENE BENOIT MRN: [id number] date: 1955 Sex: F Assigned Patient Location: CARD Current Patient Location: Accession/Order Number: [id number] Exam Date: 01/27/2024 15:05 Report Date: 01/28/2024 07:21 At the request of: TOOTIE APPLE Procedure: XR DEXA axial skeleton EXAMINATION: XR DEXA axial skeleton, 01/27/2024 3:05 PM EDT HISTORY: Z78.0 asymptomatic menopausal state COMPARISON: 2016 TECHNIQUE: Dual-energy X-ray absorptiometry (DEXA) bone density study performed for the axial skeleton. HISTORY: Z78.0 asymptomatic menopausal state FINDINGS: Bone mineral density AP spine L1-L4 measures 1.200 g/sq cm. T score 0.2. Dense opacification: Normal. Lowest bone mineral densities the left femoral neck measuring 0.806 g/sqcm for T score of -1.7. WHO classification: Osteopenia XR/XR DEXA axial skeleton IMPRESSION: Osteopenia. Moderate fracture risk Electronically authenticated by: JONELLE EPSTEIN Date: 01/28/2024 07:21 Dictated By: Jonelle Epstein M.D. Signed By:01/28/24723 DD/ 0 TD/TT: Director [employer]: us Tootie Apple NP [facility] Final Result documented in this encounter Visit Diagnoses Not on filedocumented in this encounter Additional Health Concerns Assessment Noted Time PHQ-9 Depression Total Score: 2 01/14/20 24 10:40 AM EDT documented as of this encounter Care Teams Meat Blender Relationship Specialty Start Date End Date Bowen Cowan MD [address] [place] [address] PCP - General Family Medicine 12/04/23 Tootie Apple NP [address] [place] [address] PCP - ACO Reach 11/19/24 Tootie Apple NP Referring Physician Nurse Practitioner 04/07/23 documented as of this encounter
--- OUTSIDE RECORDS SUMMARY | 2025-05-18 10:10 | XMS_ITS | Clinical Summary ---
Author Organization [facility] Address [address] [place] [address] Phone Care Team Providers Care Egg Sorter Name Role Phone Unavailable Primary Care Provider Unavailabl e Social History Tobacco Use Types Packs/Day Years Used Date Smoking Tobacco: Never Assessed Comments Unknown Sex and Gender Information Value Date Recorded Sex Assigned at Not on file Legal Sex Female 3:22 PM EST Gender Identity Not on file Sexual Orientation Not on file Plan of Treatment Not on file
--- OUTSIDE RECORDS SUMMARY | 2025-05-18 10:10 | XMS_ITS | Clinical Summary ---
Author Organization [facility] Healthcare Address [address] [place] [address] Care Team Providers Care Director Global Intelligence Name Role Phone Tootie Apple NP Unavailable [phone] Bowen Cowan MD Primary Care Provider [phone] Tootie Apple LEAD SOFTWARE DEVELOPER Unavailable [phone] Allergies Active Allergy Reactions Criticality Noted Date Comments Doxycycline Hives,Swelling 11/03/2019 Minocycline Angioedema,Hives,Swelling 3 Medications Xiidra 5 % solution Administer 1 drop into both eyes in the morning and 1 drop before bedtime. 04/28/20 23 Active fexofenadine ODT (Ann ODT) 30 MG disintegrating tablet Take 30 mg by mouth Daily OTC Active triamcinolone (Nasacort) 55 MCG/ACT nasal inhaler Administer 2 sprays into each nostril Daily OTC Active escitalopram (Lexapro) 20 MG tabletIndications :Anxiety disorder, unspecified,Anxie ty state Take 1 tablet (20 mg) by mouth Daily 90 tablet 1 08/09/20 24 Active spironolactone (Aldactone) 25 MG tabletIndications :Essential hypertension,Bila teral lower extremity edema,Hirsutism Take 1 tablet (25 mg) by mouth Daily 90 tablet 1 08/26/20 24 Active losartan (Cozaar) 50 MG tabletIndications :Primary hypertension Take 1 tablet (50 mg) by mouth Daily 90 tablet 04/08/20 25 2024 Active metoprolol tartrate (Lopressor) 50 MG tabletIndications :Essential (primary) hypertension,Esse ntial hypertension Take 1 tablet (50 mg) by mouth in the morning and 1 tablet (50 mg) before bedtime. 180 tablet 04/14/20 25 2024 Active pantoprazole (ProtoNix) 40 MG EC tabletIndications :Gastroesophageal reflux disease, unspecified whether esophagitis present Take 1 tablet (40 mg) by mouth in the morning. Take before meals. 90 tablet 04/14/20 25 2024 Active meloxicam (Mobic) 15 MG tabletIndications :Pain in right hand,Pain in soft tissues of limb Take 1 tablet (15 mg) by mouth Daily 90 tablet 04/24/20 25 2024 Active meloxicam (Mobic) 15 MG tabletIndications :Pain in right hand,Pain in soft tissues of limb Take 1 tablet (15 mg) by mouth Daily 90 tablet 1 08/09/20 24 2024 Discontinued Active Problems Problem Noted Date Diagnosed Date Need for influenza vaccination 07/19/2024 Bilateral lower extremity edema 07/19/2024 Hirsutism 07/19/2024 Morbid (severe) obesity due to excess calories 0 05/19/2024 Body mass index (BMI) 45.0-49.9, adult Osteopenia of multiple sites 01/28/2024 Overview (01/28/2024): DEXA scan: 01/27/2024 Osteopenia -1.7 Panic attack 01/14/2024 GERD (gastroesophageal reflux disease) Assessment & Plan (07/19/2024 1:15 PM EDT): Does great on PPI, if does not take it symptoms are severely uncontrolled Cont PPI Assessment & Plan (05/19/2024 3:01 PM EDT): Does great on PPI, if does not take it symptoms are severely uncontrolled Cont PPI Assessment & Plan (01/14/2024 11:26 AM EDT): Does great on PPI, if does not take it symptoms are severely uncontrolled Cont PPI Arthritis 01/14/2024 Essential (primary) hypertension 01/14/2024 Assessment & Plan (07/19/2024 1:48 PM EDT): Will add aldactone, help with BP, as well as swelling, and facial hair Fu in 4 weeks Assessment & Plan (05/19/2024 3:00 PM EDT): Doing well blood pressure ar[place]ula Cont current meds ECHO WNL No changes to dose/stable Assessment & Plan (01/14/2024 11:26 AM EDT): Not at goal, will add losartan 50mg daily, cont Bblockers Check echo Fu in 2 weeks Anxiety and depression 01/14/2024 Assessment & Plan (01/14/2024 11:27 AM EDT): Stable on current meds, no changes in meds Primary insomnia 01/14/2024 Pre-diabetes 01/14/2024 Assessment & Plan (05/19/2024 3:01 PM EDT): A1c 5.7 No current meds Assessment & Plan (01/14/2024 11:26 AM EDT): Check A1c test and labs LINDA (obstructive sleep apnea) 01/14/2024 Vitamin B12 deficiency 01/14/2024 Assessment & Plan (01/14/2024 11:26 AM EDT): Severe fatigue ever since covid Vitamin D deficiency 01/14/2024 Assessment & Plan (05/19/2024 3:01 PM EDT): Low vit d, will add Vit D 2,000 daily Encounter for screening mamm ogram for malignant neoplasm of breast 01/14/2024 Colon cancer screening 01/14/2024 Dyspnea on exertion 01/14/2024 Assessment & Plan (01/14/2024 11:28 AM EDT): Check cxr as well as ECHO Former smoker Worsened breathing since covid in 11/05 Encounter for subsequent [facility] wellness visit (AWV) in Medicare patient 01/14/2024 Assessment & Plan (01/14/2024 11:30 AM EDT): Reviewed Ht/Wt/BMI Recommend eye exam yearly Recommend dental exams twice a year Balance work/leisure activities Exercises is recommended most days of the week (appropriate as chronic conditions allow) Follow up yearly and prn Resolved Problems Problem Noted Date Diagnosed Date Resolved Date Pre-operative clearance 05/19/2024 07/2 11/2024 Assessment & Plan (05/19/2024 3:03 PM EDT): HTN: controlled, ECHO 02/03 WNL LINDA: non compliant with PAP Pre diabetes: does not require meds Reviewed labs from today Will obtain copy of EKG to review and if normal will clear for surgery Tobacco dependence 01/14/2024 Right otitis media with effusion 01/14/2024 05/03/2025 Assessment & Plan (01/14/2024 11:38 AM EDT): This has been chronic for several months, at this point we will send her to see ENT Encounters Date Type Department Care Team Description 04/23/2025 Refill [facility] [address] [place] [phone] Tootie Apple NP Pain in right hand; Pain in soft tissues of limb 04/13/2025 Refill [facility] [address] [place] [address] Tootie Apple NP Essential (primary) hypertension ; Essential hypertension ; Gastroesophageal reflux disease, unspecified whether esophagitis present 04/07/2025 Refill [facility] [address] [place] [address] Tootie Apple NP Primary hypertension 02/25/2025 Telephone [facility] [address] [place] [id number] Gokul Arceo DPM 02/18/2025 Travel from Last 3 Months Immunizations Immunization Administration Dates Next Due Influenza, injectable, MDCK, preservative free, quadrivalent 06/13/2017 Influenza, trivalent, adjuvanted 07/19/2024 Tdap 06/11/2015 Zoster, live 06/13/2017 Family History Medical History Relation Name Comments Breast cancer Mother Hypertension Mother Melanoma Neg Hx Relation Name Status Comments Father Mother Sister Social History Tobacco Use Types Packs/Day Years Used Date Smoking Tobacco: Former Cigarettes Q uit: 2019 Passive Smoke Exposure: Past Smokeless Tobacco: Never Tobacco Cessation:Counseling Given: Yes Alcohol Use Standard Drinks/Week Comments Never 0 [...] week 01/14/2024 How often do you attend [facility] or sabianist services? More than 4 times per year 01/14/2024 Do you belong to any clubs o r organizations such as shinto groups, unions, fraternal or athletic groups, or [...] Recorded Patient Health Questionnaire-2 Score 1 01/14/2024 [facility] - Occupational Stress Questionnaire Answer Date Recorded [...] PM EDT Sexual Orientation Not on file Last Filed Vital Signs Vital Sign Reading Time Taken Comments Blood Pressure 160/76 07/19/2024 1:02 PM EDT Pulse 86 07/19/2024 1:02 PM EDT Temperature 37.1 C (98.7 F) 07/19/2024 1:02 PM EDT Respiratory Rate 16 01/13/2025 1:11 PM EDT Oxygen Saturation 97% 07/19/2024 1:02 PM EDT Inhaled Oxygen Concentration - - Weight 123 kg (271 lb) 01/13/2025 1:11 PM EDT Height 165.1 cm (5' 5 ) 01/13/2025 1:11 PM EDT Body Mass Index 45.1 01/13/2025 1:11 PM EDT Plan of Treatment Upcoming Encounters Date Type Department Care Team (Late st Contact Info) Description 05/18/2025 10:30 AM EDT Office Visit [facility] [address] [place] [address] Tootie Apple, SEBASTIAN [address] [place] [address] Health Maintenance Due Date Last Done Comments CT Colonography 1955 Colonoscopy 1955 Colorectal Cancer Screening 1955 FIT-DNA 1955 FIT 1955 FOBT 1955 Sigmoidoscopy 1955 Pneumococcal Vaccine: 65+ Ye ars (1 of 1 - PCV) 02/11/2006 Medicare Annual Wellness (AWV) 01/13/2025 01/14/2024 , 01/14/2024 Mammogram 01/26/2025 01/27/2024 Influenza Vaccine (#1) 2025 07/19/2024, 2016 Procedures Procedure Name Priority Date/Time Associated Diagnosis Comments MM TOMOSYNTHESIS SCREENING BI 01/27/2024 4:06 PM EDT from Last 3 Months or Most Recently Relevant to Health Maintenance Results * MM TOMOSYNTHESIS SCREENING BI (01/27/2024 4:06 PM EDT) Anatomical Region Laterality Modality Other 01/27/2024 4:06 PM EDT Narrative 01/27/2024 4:07 [place] [address] Mammography Report Signed Patient: CHLOE BENOIT MR#: [id number] : 1955 Acct:[id number] Age/Sex: 68 / F ADM Date: 01/27/24 Loc: CARD Attending Dr: Tootie Apple NP Ordering Physician: Tootie Apple NP Results: Date of Service: 01/27/24 Follow Up: Procedure(s): MM tomosynthesis screening BI Accession Number(s): [id number] cc: Tootie Apple NP Patient Name: CHLOE BENOIT MR#: [id number] : 1955 Exam Date: 01/27/2024 Ordering Doctor: [...] liver cancer at age 71. LOCATION: [facility] BREAST COMPOSITION: Scattered areas fibroglandular [...] Signed By: 01/27/24 1607 DD/ 1606 TD/TT: Readiness Paraprofessional: Procedure Note Radiology, Radiologist, - 01/27/2024 [place] [address] Mammography Report Signed Patient: CHLOE BENOIT AMR#: [id number] : 1955cct:[id number] Age/Sex: 68 / FADM Date: 01/27/24 Loc: CARD Attending Dr: Tootie Apple NP Ordering Physician: Tootei Apple NPResults: Date of Service: 01/27/24Follow Up: Procedure(s): MM tomosynthesis screening BI Accession Number(s): [id number] cc: Tootie Apple NP Patient Name: CHLOE BENOIT MR#: [id number] : 1955 Exam Date: 01/27/2024 Ordering Doctor: PARKER Apple EMERGENCY VETERINARY TECHNICIAN RADIOLOGY REPORT PROCEDURE: MM TOMOSYNTHESIS SCREENING BI [...] liver cancer at age 71. LOCATION: [facility] BREAST COMPOSITION: Scattered areas fibroglandular [...] M.D. Signed By:01/27/24 1607 DD/ 1606 TD/TT: Readiness Paraprofessional: Tootie Apple NP [facility] Final Result from Last 3 Months or Most Recently Relevant to Health Maintenance Insurance MEDICARE Care Teams Director Global Intelligence Relationship Specialty Start Date End Date Bowen Cowan MD [address] [place] [phone] PCP - General Family Medicine 12/04/23 Tootie Apple NP [address] [place] [phone] PCP - ACO Reach 11/19/24 Tootie Apple NP Referring Physician Nurse Practitioner 04/07/23
--- OUTSIDE RECORDS SUMMARY | 2025-05-18 10:10 | XMS_ITS | Encounter Summary ---
Author Organization [facility] Address [address] [place] [address] Care Team Providers Care Detector Car Operator Name Role Phone Tootie Apple NP Unavailable [phone] Bowen Cowan MD Primary Care Provider [phone] Tootie Apple NP Unavailable [phone] Encounter Details Date Type Department Care Team (Late st Contact Info) Description 01/27/2024 Clinisync Result Encounter [facility] External Department Unsolicited Tootie Apple NP [address] [place] [address] Social History Tobacco Use Types Packs/Day Years [...] often do you attend chur ch or mormon services? More than 4 times per year 01/14/2024 Do you belong to any clubs o r organizations such as tenriism groups, unions, fraternal or athletic groups, or [...] Recorded Patient Health Questionnaire-2 Score 1 01/14/2024 [facility] - Occupational Stress Questionnaire Answer Date Recorded [...] place to sleep or slept in a halfway (including now)? No 01/14/2024 Comments Unknown Sex [...] Office Visit [facility] [address] [place] [address] Tootie Apple NP [address] [place] [address] documented as of this encounter Procedures Procedure Name Priority Date/Time Associated Diagnosis Comments CA ECHO DOPPLER COMPLETE 01/27/2024 6:07 PM EDT documented in this encounter Results * CA ECHO DOPPLER COMPLETE (01/27/2024 6:07 PM EDT) Anatomical Region Laterality Modality Other 01/27/2024 6:07 PM EDT Narrative 01/27/2024 6:08 PM EDT The [address] [address] Cardiology Report Signed Patient: ARLENE BENOIT MR#: [id number] : 1955 Acct:[id number] Age/Sex: 68 / F ADM Date: 01/27/24 Loc: CARD Attending Dr: Tootie Apple NP Ordering Physician: Tootie Apple NP Date of Service: 01/27/24 Procedure(s): CA echo doppler complete Accession Number(s): [id number] cc: Tootie Apple NP Patient Name: ARLENE BENOIT MR#: [id number] : 1955 Exam Date: 01/27/2024 Ordering Doctor: PARKER Apple CNP ECHOCARDIOGRAM REPORT PROCEDURE: CA ECHO DOPPLER COMPLETE INDICATIONS: Uncontrolled hypertension, dyspnea COMPARISON: None. DESCRIPTION: COMPLETE ECHOCARDIOGRAM Real-time transthoracic echocardiography with 2D, M-mode, spectral and color flow Doppler performed. QUALITY: Technical quality was adequate. 65 , 264#, BSA 2.23 m2, BP 166/84 LEFT VENTRICLE: Normal chamber size. Normal left ventricular wall thickness. Normal systolic function. LV EF: Normal left ventricular ejection fraction, (>55%). DIASTOLIC: Normal diastolic function. ATRIAL SEPTUM: Visually appears intact. LEFT ATRIUM: Normal chamber size. RIGHT ATRIUM: Normal chamber size. RIGHT VENTRICLE: Normal chamber size. Normal right ventricular systolic function. TRICUSPID VALVE: Normal mobility and thickness. No stenosis with trivial regurgitation. No evidence of pulmonary hypertension. RVSP 33 mmHg MITRAL VALVE: Normal mobility and thickness. No evidence of mitral valve stenosis. There is no mitral annular calcification. No mitral regurgitation. AORTIC VALVE: Normal trileaflet appearance. No visible sclerosis. Normal leaflet mobility. No evidence of aortic valve stenosis. Multifocal calcifications. No aortic regurgitation. AORTIC ROOT: Normal diameter and appearance. PULMONIC VALVE: Normal thickness and mobility. No stenosis. No regurgitation. PERICARDIUM: No evidence of pericardial effusion. IVC: Collapses with inspirations. PLEURA: CONCLUSION: 1. Normal ventricular size and systolic function. LVEF is estimated at 55 to 60%. 2. Normal diastolic function. 3. No significant valvular dysfunction. 4. Normal right-sided pressures. 5. No pericardial effusion. Adult Echocardiography Procedure Report Left Ventricle LVEDD (3.7 - 5.6 cm): 4.61 cm LVESD (2.2 - 4.0 cm): 3.32 cm LVIVS thickness (0.6 - 1.2 cm): 0.67 cm LVPW thickness (0.5 - 1.0 cm): 0.81 cm e': 0.07 m/s E - e': 11.07 LVOT Max Gradient: 4.03 mm[Hg] LVOT Area (cm2): 1.00 m/s Peak Velocity (LVOT): 1.00 m/s Mean Velocity (LVOT): 0.66 m/s LVOT Diameter 1.99 cm Left Atrium LA Volume Index (2D A2C): 28.59 ml/m2 Left Atrium Systolic Dimension: 4.12 cm Mitral Valve MV E to A Ratio: 0.80 Mitral Valve A-Wave Peak Velocity: 0.93 m/s Mitral Valve E-Wave Peak Velocity: 0.74 m/s Right Ventricle Aorta AO Root Diam: 2.90 cm Aortic Valve AoV Area (Peak Joe): 1.91 cm2, 1.91 cm2 AoV Area (VTI): 2.57 cm2, 2.57 cm2 Peak Velocity(Antegrade Flow): 1.63 m/s Peak Gradient(Antegrade Flow): 10.64 mm[Hg] Mean Velocity(Antegrade Flow): 1.19 m/s Mean Gradient(Antegrade Flow): 6.11 mm[Hg] Velocity Time Integral: 30.24 cm Tricuspid Valve Peak Velocity (Regurgitant Flow): 2.74 m/s, 2.67 m/s Pulmonic Valve Peak Gradient: 3.49 mm[Hg], 3.39 mm[Hg] Right Atrium Right Atrium Systolic Pressure: 47.54 ml, 47.54 ml Dictated by: Kwadwo Bonilla M.D. on 01/27/2024 at 18:03 Approved by: Kwadwo Bonilla M.D. on 01/27/2024 at 18:06 Dictated By: KWADWO BONILLA Signed By: 01/27/241807 DD/ 06 TD/TT: Colorer: Procedure Note Radiology, Radiologist, - 01/27/2024 [place] [address] Cardiology Report Signed Patient: ARLENE BENOIT AMR#: [id number] : 6Acct:[id number] Age/Sex: 68 / FADM Date: 01/27/24 Loc: CARD Attending Dr: Tootie Apple NP Ordering Physician: Tootie Apple NP Date of Service: 01/27/24 Procedure(s): CA echo doppler complete Accession Number(s): [id number] cc: Tootie Apple NP Patient Name: ARLENE BENOIT MR#: [id number] : 1955 Exam Date: 01/27/2024 Ordering Doctor: PARKER Apple CNP ECHOCARDIOGRAM REPORT PROCEDURE: CA ECHO DOPPLER COMPLETE INDICATIONS: Uncontrolled hypertension, dyspnea COMPARISON: None. DESCRIPTION: COMPLETE ECHOCARDIOGRAM Real-time transthoracic echocardiography with 2D, M-mode, spectral and color flow Dopplerperformed. QUALITY: Technical quality was adequate. 65 , 264#, BSA 2.23 m2, BP 166/84 LEFT VENTRICLE: Normal chamber size. Normal left ventricular wall thickness. Normal systolic function. LV EF: Normal left ventricular ejection fraction, (>55%). DIASTOLIC: Normal diastolic function. ATRIAL SEPTUM: Visually appears intact. LEFT ATRIUM: Normal chamber size. RIGHT ATRIUM: Normal chamber size. RIGHT VENTRICLE: Normal chamber size. Normal right ventricularsystolic function. TRICUSPID VALVE: Normal mobility and thickness. No stenosis withtrivial regurgitation. No evidence of pulmonary hypertension. RVSP 33 mmHg MITRAL VALVE: Normal mobility and thickness. No evidence of mitralvalve stenosis. There is no mitral annular calcification. No mitralregurgitation. AORTIC VALVE: Normal trileaflet appearance. No visible sclerosis.Normal leaflet mobility. No evidence of aortic valve stenosis. Multifocal calcifications. No aortic regurgitation. AORTIC ROOT: Normal diameter and appearance. PULMONIC VALVE: Normal thickness and mobility. No stenosis. No regurgitation. PERICARDIUM: No evidence of pericardial effusion. IVC: Collapses with inspirations. PLEURA: CONCLUSION: 1. Normal ventricular size and systolic function. LVEF is estimated at 55to 60%. 2. Normal diastolic function. 3. No significant valvular dysfunction. 4. Normal right-sided pressures. 5. No pericardial effusion. Adult Echocardiography Procedure Report Left Ventricle LVEDD (3.7 - 5.6 cm): 4.61 cm LVESD (2.2 - 4.0 cm): 3.32 cm LVIVS thickness (0.6 - 1.2 cm): 0.67 cm LVPW thickness (0.5 - 1.0 cm): 0.81 cm e': 0.07 m/s E - e': 11.07 LVOT Max Gradient: 4.03 mm[Hg] LVOT Area (cm2): 1.00 m/s Peak Velocity (LVOT): 1.00 m/s Mean Velocity (LVOT): 0.66 m/s LVOT Diameter 1.99 cm Left Atrium LA Volume Index (2D A2C): 28.59 ml/m2 Left Atrium Systolic Dimension: 4.12 cm Mitral Valve MV E to A Ratio: 0.80 Mitral Valve A-Wave Peak Velocity: 0.93 m/s Mitral Valve E-Wave Peak Velocity: 0.74 m/s Right Ventricle Aorta AO Root Diam: 2.90 cm Aortic Valve AoV Area (Peak Joe): 1.91 cm2, 1.91 cm2 AoV Area (VTI): 2.57 cm2, 2.57 cm2 Peak Velocity(Antegrade Flow): 1.63 m/s Peak Gradient(Antegrade Flow): 10.64 mm[Hg] Mean Velocity(Antegrade Flow): 1.19 m/s Mean Gradient(Antegrade Flow): 6.11 mm[Hg] Velocity Time Integral: 30.24 cm Tricuspid Valve Peak Velocity (Regurgitant Flow): 2.74 m/s, 2.67 m/s Pulmonic Valve Peak Gradient: 3.49 mm[Hg], 3.39 mm[Hg] Right Atrium Right Atrium Systolic Pressure: 47.54 ml, 47.54 ml Dictated by: Kwadwo Bonilla M.D. on 01/27/2024 at 18:03 Approved by: Kwadwo Bonilla M.D. on 01/27/2024 at 18:06 Dictated By: KWADWO BONILLA Signed By:01/27/241807 DD/ 06 TD/TT: Colorer: us Tootie Apple NP [facility] Final Result documented in this encounter Visit Diagnoses Not on filedocumented in this encounter Additional Health Concerns Assessment Noted Time PHQ-9 Depression Total Score: 2 01/14/20 24 10:40 AM EDT documented as of this encounter Care Teams Detector Car Operator Relationship Specialty Start Date End Date Bowen Cowan MD [address] [place] [phone] PCP - General Family Medicine 12/04/23 Tootie Apple NP [address] [place] [address] PCP - ACO Reach 11/19/24 Tootie Apple NP Referring Physician Nurse Practitioner 04/07/23 documented as of this encounter
--- OUTSIDE RECORDS SUMMARY | 2025-05-18 10:10 | XMS_ITS | Encounter Summary ---
Author Organization [facility] Address [address] [place] [address] Care Team Providers Care Shop Laborer Name Role Phone Tootie Apple NP Unavailable [phone] Bowen Cowan MD Primary Care Provider [phone] Tootie Apple NP Unavailable [phone] Reason for Visit * Reason Comments Med Refill Encounter Details Date Type Department Care Team (Late st Contact Info) Description 04/07/2025 Refill [facility] [address] [place] [address] Tootie Apple NP [address] [place] [address] Primary hypertension Social History Tobacco Use Types Packs/Day Years [...] week 01/14/2024 How often do you attend [facility] or sabianist services? More than 4 times per year 01/14/2024 Do you belong to any clubs o r organizations such as protestant groups, unions, fraternal or athletic groups, or [...] Recorded Patient Health Questionnaire-2 Score 1 01/14/2024 [facility] - Occupational Stress Questionnaire Answer Date [...] encounter Miscellaneous Notes * Telephone Encounter - Tootie Apple NP - 04/08/2025 9:32 AM EDT Needs a fu appt, last seen 08/05 documented in this encounter Plan of Treatment Upcoming Encounters Date Type Department Care Team (Late st Contact Info) Description 05/18/2025 10:30 AM EDT Office Visit [facility] [address] [place] [address] Tootie Apple NP [address] [place] [address] documented as of this encounter Visit Diagnoses Diagnosis Primary hypertension Unspecified essential hypertension Essential (primary) hypertension- Primary Unspecified essential hypertension LINDA (obstructive sleep apnea) Obstructive sleep apnea (adult) (pediatric) Gastroesophageal reflux disease, unspecified whether esophagitis present Morbid (severe) obesity due to excess calories ([facility]) Pre-diabetes Other abnormal glucose Encounter for subsequent annual wellness visit (AWV) in Medicare patient documented in this encounter Additional Health Concerns Assessment Noted Time PHQ-9 Depression Total Score: 2 01/14/20 24 10:40 AM EDT documented as of this encounter Care Teams Shop Laborer Relationship Specialty Start Date End Date Bowen Cowan MD [address] [place] [address] PCP - General Family Medicine 12/04/23 Tootie Apple NP [address] [place] [address] PCP - ACO Reach 11/19/24 Tootie Apple NP Referring Physician Nurse Practitioner 04/07/23 documented as of this encounter
--- OUTSIDE RECORDS SUMMARY | 2025-05-18 10:10 | XMS_ITS | Encounter Summary ---
Author Organization [facility] Address [address] [place] [address] Care Team Providers Care Parts Cataloger Name Role Phone Tootie Apple NP Unavailable [phone] Bowen Cowan MD Primary Care Provider [phone] Tootie Apple TUBE PULLER Unavailable [phone] Reason for Visit * Reason Comments Med Refill Encounter Details Date Type Department Care Team (Late st Contact Info) Description 10/29/2024 Refill [facility] [address] [place] [address] Tootie Apple, TUBE PULLER [address] [place] [id number] Vitamin D deficiency, unspecified Social History Tobacco Use Types Packs/Day Years [...] week 01/14/2024 How often do you attend [facility] or [facility] services? More than 4 times per year 01/14/2024 Do you belong to any clubs o r organizations such as advent groups, unions, fraternal or athletic groups, or [...] Recorded Patient Health Questionnaire-2 Score 1 01/14/2024 [facility] - Occupational Stress [...] place to sleep or slept in a [place] [facility] [place] (including now)? No 01/14/2024 Comments Unknown Sex and Gender Information Value Date Recorded Sex Assigned at Not on file Legal Sex Female 6:41 PM EDT Gender Identity Female 04/06/2023 7:49 PM EDT Sexual Orientation Not on file documented as of this encounter Miscellaneous Notes * Telephone Encounter - Tootie Apple NP - 10/29/2024 4:18 PM EST Needs a fu appt for 12/07, she cancelled her appt in 09/05 not rescheduled as of yet [place] documented in this encounter Plan of Treatment Upcoming Encounters Date Type Department Care Team (Late st Contact Info) Description 05/18/2025 10:30 AM EDT Office Visit [facility] [address] [place] [address] Tootie Apple NP [address] [place] [address] documented as of this encounter Visit Diagnoses Diagnosis Vitamin D deficiency, unspecified Essential (primary) hypertension- Primary Unspecified essential hypertension LINDA (obstructive sleep apnea) Obstructive sleep apnea (adult) (pediatric) Gastroesophageal reflux disease, unspecified whether esophagitis present Morbid (severe) obesity due to excess calories ([facility]) Pre-diabetes Other abnormal glucose Encounter for subsequent annual wellness visit (AWV) in Medicare patient documented in this encounter Additional Health Concerns Assessment Noted Time PHQ-9 Depression Total Score: 2 01/14/20 24 10:40 AM EDT documented as of this encounter Care Teams Parts Cataloger Relationship Specialty Start Date End Date Bowen Cowan MD [address] [place] [id number] PCP - General Family Medicine 12/04/23 Tootie Apple NP [address] [place] [address] PCP - ACO Reach 11/19/24 Tootie Apple NP Referring Physician Nurse Practitioner 04/07/23 documented as of this encounter
[2025-05-18 10:32] LABS: Hematocrit 41.4 % (36.0-48.0); Hemoglobin 13.7 g/dL (12.0-16.0); Mean Corpuscular HGB Conc 33.1 g/dL (29.9-35.2); Mean Corpuscular Hemoglobin 32.2 pg (26.7-34.0); Mean Corpuscular Volume 97.4 fL (81.0-99.0); Platelet Count 226 10^3/uL (150-450); Red Blood Count 4.25 10^6/uL (4.20-5.40); White Blood Count 9.2 10^3/uL (4.0-11.0)
[2025-05-18 11:07] LABS: Glucose Urine UA NEGATIVE (NEGATIVE)
[2025-05-18 11:38] LABS: Alanine Aminotransferase 44 U/L (14-59); Albumin Globulin Ratio 0.9; Albumin Level 3.5 g/dL (3.4-5.0); Alkaline Phosphatase 86 U/L (46-116); Anion Gap 13.4; Aspartate Amino Transferase 25 U/L (15-37); Blood Urea Nitrogen 13.0 mg/dL (7.0-18.0); Calcium 10.0 mg/dL (8.5-10.1); Carbon Dioxide 26.6 mmol/L (21.0-32.0); Chloride 104 mmol/L (98-107); Cholesterol 137 mg/dL (<=200); Estimated GFR (African America >60 (>=60 mL/min/1.73m^2); Estimated GFR (Non-African Ame 56 (>=60 mL/min/1.73m^2); Globulin 4.1 g/dL; Glucose 133 mg/dL (74-106); HDL Cholesterol 46 mg/dL (40-60); Potassium 4.0 mmol/L (3.5-5.1); Sodium 140 mmol/L (136-145); Total Protein 7.6 g/dL (6.4-8.2); Triglycerides 94 mg/dL (<=150); VLDL CHOLESTEROL 18.8 mg/dL
[2025-05-18 11:49] LABS: Microalbum Creatinine Ratio Ur 10.9 mg/g (0.0-29.9)
[2025-05-18 12:23] LABS: Cast Seen? NONE SEEN #/LPF (NONE SEEN); Crystals Seen? None Seen #/HPF (None Seen)
[2025-05-18 12:36] LABS: Segmented Neut Absolute Manual 6.44 10^3/uL (1.4-6.5); Segmented Neutrophils % Manual 70.0 (43.0-75.0)
[2025-05-18 12:37] LABS: Basophils Abs Manual 0.36 10^3/uL (0.00-0.10); Basophils Percent Manual 4.0 % (0.2-2.0); Eosinophils Absolute Manual 0.36 10^3/uL (0.00-0.70); Eosinophils Percent Manual 4.0 % (0.9-7.0); Lymphocytes Absolute Manual 1.65 10^3/uL (1.20-3.80); Lymphocytes Percent Manual 18.0 % (20.5-60.0); Monocytes Absolute Manual 0.36 10^3/uL (0.30-0.80); Monocytes Percent Manual 4.0 % (1.7-12.0)
[2025-05-19 04:07] LABS: Vitamin B12 1125 pg/mL (232-1245)
== END 2025-05-18 10:01 | disposition home or self-care (01) ==
PROVIDERS: PCP Nurse Practitioner; Visit Provider Nurse Practitioner
DX: G47.33 Obstructive sleep apnea (adult) (pediatric) (principal); K21.9 Gastro-esophageal reflux disease without esophagitis; E53.8 Deficiency of other specified B group vitamins; I10 Essential (primary) hypertension; R60.0 Localized edema; E55.9 Vitamin D deficiency, unspecified; R73.03 Prediabetes
CPT/HCPCS: 36415; 80053; 80061; 81001; 82043; 82306; 82570; 82607; 83036; 85007; 85027